=== PATIENT | female | born 1970 | race Caucasian/White ===

== ENCOUNTER 2019-07-08 08:50 | Emergency (ER) | payer BC ==
[~2019-07-08] VITALS: Ht 170.2 cm; Wt 80.0 kg
[2019-07-08] MEDS ORDERED: ipratropium/albuterol 3ml nebule NEB ONE (09:00)
[2019-07-08] MEDS ORDERED: predniSONE 20 mg tablet PO ONE (09:00)
[2019-07-08] MEDS ORDERED: azithromycin 250mg tablet PO ONE (09:05)
[2019-07-08] MEDS ORDERED: normal saline 1000ML IV soln IVB ONE (09:40)
[2019-07-08] MEDS ORDERED: LORazepam 2 mg/ml vial IV ONE (09:40)
--- NOTE | 2019-07-08 10:25 | NUR ---
Pt sitting on bed playing on phone. No acute distress observed.
[2019-07-08 10:41] LABS: CLARITY,URINE CLEAR (Clear); COLOR,URINE YELLOW (Yellow); GLUCOSE, URINE NEGATIVE (Neg); KETONES,URINE NEGATIVE (Neg); LEUKOCYTE ESTERASE ,URINE NEGATIVE (Neg); NITRITES, URINE NEGATIVE (Neg); OCCULT BLOOD,URINE NEGATIVE (Neg); PROTEIN,URINE NEGATIVE (Neg); UROBILINOGEN,URINE 0.2 E.U/dL (0.2-1.0)
[2019-07-08 10:45] LABS: UA COLLECTION TYPE CLN CATCH MIDSTREAM
[2019-07-08 10:49] LABS: BASOPHILS # (AUTO) 0.1 X10'3 (0-0.2); BASOPHILS % (AUTO) 1.3 % (0-1); EOSINOPHILS # (AUTO) 0.1 X10'3 (0-0.9); EOSINOPHILS % (AUTO) 1.1 % (0-6); HEMATOCRIT 44.9 % (35.0-45.0); HEMOGLOBIN 15.5 g/dl (12.0-16.0); LYMPHOCYTES # (AUTO) 1.6 X10'3 (1.1-4.8); LYMPHOCYTES % (AUTO) 16.9 % (21-51); MEAN CORPUSCULAR HEMOGLOBIN 33.3 PG (27.0-31.0); MEAN CORPUSCULAR HGB CONC 34.5 g/dL (33.0-36.5); MEAN CORPUSCULAR VOLUME 96.3 FL (78-98); MEAN PLATELET VOLUME 8.6 FL (7.4-10.4); MONOCYTES # (AUTO) 0.5 X10'3 (0-0.9); MONOCYTES % (AUTO) 5.4 % (2-12); NEUTROPHILS # (AUTO) 7.2 X10'3 (1.8-7.7); NEUTROPHILS % (AUTO) 75.3 % (42-75); PLATELET COUNT 220 X10'3 (140-440); RED BLOOD COUNT 4.66 X10'6 (4.20-5.60); RED CELL DISTRIBUTION WIDTH 12.4 % (11.5-14.5); WHITE BLOOD COUNT 9.6 X10'3 (4.5-11.0)
[2019-07-08 10:55] LABS: D-DIMER 0.25 MG/L FEU (0-0.50)
[2019-07-08] MEDS ORDERED: ondansetron/PF 4mg/2ml inj IV ONE (10:55)
[2019-07-08 11:00] VITALS: BP 127/80
[2019-07-08 11:00] LABS: ALANINE AMINOTRANSFERASE 16 U/L (12-78); ALBUMIN 3.8 G/DL (3.4-5.0); ALBUMIN/GLOBULIN RATIO 1.2 (1.1-1.5); ALKALINE PHOSPHATASE 48 IU/L (46-116); ANION GAP 14 (8-16); ASPARTATE AMINO TRANSFERASE 14 U/L (10-37); BILIRUBIN,TOTAL 0.4 MG/DL (0.1-1.0); BLOOD UREA NITROGEN 11 MG/DL (7-18); BUN/CREATININE RATIO 12.6 (6.6-38.0); CALCIUM 8.7 MG/DL (8.5-10.1); CHLORIDE 108 MMOL/L (99-107); CREATININE 0.87 MG/DL (0.40-0.90); GLUCOSE 118 MG/DL (70-104); POTASSIUM 3.3 MMOL/L (3.5-5.1); SODIUM 143 MMOL/L (135-145); TOTAL CARBON DIOXIDE 21.1 MMOL/L (24-32); TOTAL PROTEIN 6.9 G/DL (6.4-8.2); eGFR 69 ML/MIN
[2019-07-08] MEDS ORDERED: proCHLORperazine 10 MG/2 ml inj IV ONE (11:00)
[2019-07-08] MEDS ORDERED: ALBU8.5H8 IH (11:04)
[2019-07-08] MEDS ORDERED: PRED20TA PO (11:04)
[2019-07-08] MEDS ORDERED: AZIT250T29 PO (11:04)
[2019-07-08 11:07] LABS: ETHANOL < 0.010 GM/DL (0.0-0.010)
--- NOTE | 2019-07-08 11:09 | NUR ---
Pt sitting at bedside vomiting. Order for antiemetic obtained and given.
[2019-07-08] MEDS ORDERED: diphenhydrAMINE 50 mg/ml inj IM ONE (11:20)
[2019-07-08 11:24] LABS: URINE AMPHETAMINE SCREEN NEGATIVE (Neg); URINE BARBITUATE SCREEN NEGATIVE (Neg); URINE BENZODIAZEPINES SCREEN NEGATIVE (Neg); URINE CANNABINOID SCREEN POSITIVE (Neg); URINE COCAINE SCREEN NEGATIVE (Neg); URINE METHADONE SCREEN NEGATIVE (Neg); URINE OPIATE SCREEN NEGATIVE (Neg); URINE PHENCYCLIDINE SCREEN NEGATIVE (Neg)
== END 2019-07-08 11:52 | disposition home or self-care (01) ==
LOC: ER 08:50
DX: J45.901 Unspecified asthma with (acute) exacerbation (principal); Z20.828 Contact with and (suspected) exposure to other viral communicable diseases; Z79.899 Other long term (current) drug therapy
CPT/HCPCS: 36415; 71045; 80053; 80305; 80320; 81003; 83880; 85025; 85379; 87635; 93005; 94640; 96372; 96374; 96375; 99285; J0780; J1200; J2060; J2405; J7030; J7512; 94760

== ENCOUNTER 2019-07-16 13:39 | Emergency (ER) | payer BC ==
[~2019-07-16] VITALS: Ht 157.5 cm; Wt 61.8 kg
[~2019-07-16 13:39] MED LIST: ALBU8.5H8 IH
[2019-07-16] MEDS ORDERED: magnesium 2GM in 50ml NS 50 ML IV ONE (15:15)
[2019-07-16] MEDS ORDERED: methylPREDNISolone sod succ 125mg/2ml vial IV ONE (15:15)
[2019-07-16] MEDS ORDERED: acetaminophen/codeine 120mg/12mg per 5ml cup PO ONE (15:25)
[2019-07-16] MEDS ORDERED: ACET5SOL2 PO (16:53)
[2019-07-16 17:12] VITALS: BP 138/77
== END 2019-07-16 17:13 | disposition home or self-care (01) ==
LOC: ER 13:39
DX: R07.89 Other chest pain (principal); R51 Headache; R06.02 Shortness of breath; J45.909 Unspecified asthma, uncomplicated; F17.200 Nicotine dependence, unspecified, uncomplicated; Z79.899 Other long term (current) drug therapy
CPT/HCPCS: 71045; 93005; 96365; 96366; 96375; 99284; J2930; J3475

== ENCOUNTER 2023-04-02 12:11 | Emergency (ER) | payer BC, MEDICAID, SELFPAY ==
[~2023-04-02] VITALS: Ht 157.5 cm; Wt 76.8 kg
[~2023-04-02 12:11] MED LIST changes: +ACET5SOL2 PO; +ALBU8.5H17 IH; -ALBU8.5H8 IH
[2023-04-02 12:47] VITALS: BP 122/78; PULSE 82; RESP 16; TEMP 98.1; O2SAT 99
[2023-04-02] MEDS ORDERED: LIDOCAINE 1%/EPI 1:100,000 inj. 10 ML multi-dose vial IJ ONE (13:45)
[2023-04-02] MEDS ORDERED: TETanus/Pertussis (Acell)/Diphther VAC/PF (Tdap-Adult) 0.5ml syringe IMVAC ONE (13:45)
== END 2023-04-02 17:53 | disposition home or self-care (01) ==
LOC: ER 12:12
DX: S61.512A Laceration without foreign body of left wrist, initial encounter (principal); S61.511A Laceration without foreign body of right wrist, initial encounter; J45.909 Unspecified asthma, uncomplicated; Z79.1 Long term (current) use of non-steroidal anti-inflammatories (NSAID); Z79.899 Other long term (current) drug therapy; W25.XXXA Contact with sharp glass, initial encounter; Y93.89 Activity, other specified; Y92.89 Other specified places as the place of occurrence of the external cause; Y99.8 Other external cause status
CPT/HCPCS: 12001; 90471; 90715; 99284; J7030; A6258; A6449

== ENCOUNTER 2023-07-27 19:22 | Emergency (ER) | payer MEDICAID ==
[~2023-07-27] VITALS: Ht 157.5 cm; Wt 77.3 kg
[~2023-07-27 19:22] MED LIST changes: +iohexol 300mg/ml 100ml inj. ONE
[2023-07-27 19:25] VITALS: TEMP 98.9
[2023-07-27] MEDS: ondansetron/PF 4mg/2ml inj IV ONE (19:53)
[2023-07-27] MEDS: normal saline 1000ML IV soln IVB ONE (19:54)
[2023-07-27] MEDS: morphine 4 MG/ML inj SYRINge IV ONE (19:54)
[2023-07-27 20:35] LABS: BASOPHILS # (AUTO) 0.1 X10'3 (0-0.2); BASOPHILS % (AUTO) 0.9 % (0-1); EOSINOPHILS % (AUTO) 0.2 % (0-6); HEMOGLOBIN 15.1 g/dl (12.0-16.0); LYMPHOCYTES # (AUTO) 1.7 X10'3 (1.1-4.8); MEAN CORPUSCULAR HGB CONC 34.3 g/dL (33.0-36.5); MEAN CORPUSCULAR VOLUME 93.2 FL (78-98); MEAN PLATELET VOLUME 8.1 FL (7.4-10.4); MONOCYTES # (AUTO) 0.5 X10'3 (0-0.9); MONOCYTES % (AUTO) 3.5 % (2-12); NEUTROPHILS # (AUTO) 12.9 X10'3 (1.8-7.7); NEUTROPHILS % (AUTO) 84.4 % (42-75); PLATELET COUNT 292 X10'3 (140-440); RED BLOOD COUNT 4.72 X10'6 (4.20-5.60); RED CELL DISTRIBUTION WIDTH 13.1 % (11.5-14.5); WHITE BLOOD COUNT 15.3 X10'3 (4.5-11.0)
[2023-07-27 20:44] LABS: ALBUMIN 3.5 G/DL (3.4-5.0); ANION GAP 12 (8-16); BLOOD UREA NITROGEN 11 MG/DL (7-18); BUN/CREATININE RATIO 15.5 (10.0-20.0); CALCIUM 8.2 MG/DL (8.5-10.1); CHLORIDE 104 MMOL/L (99-107); CREATININE 0.71 MG/DL (0.40-0.90); GLUCOSE 144 MG/DL (70-104); POTASSIUM 3.9 MMOL/L (3.5-5.1); SODIUM 138 MMOL/L (135-145); TOTAL CARBON DIOXIDE 22.5 MMOL/L (24-32); eCRCL 73 ML/MIN; eGFR 86 ML/MIN
[2023-07-27] MEDS: haloperidol lactate 5mg/ml inj IM ONE (21:21)
[2023-07-28 05:14] VITALS: BP 124/68; PULSE 72; RESP 18; O2SAT 97
== END 2023-07-28 05:16 | disposition home or self-care (01) ==
LOC: ER 19:23
DX: R11.2 Nausea with vomiting, unspecified (principal); G89.29 Other chronic pain; F11.20 Opioid dependence, uncomplicated; J45.909 Unspecified asthma, uncomplicated; Z79.1 Long term (current) use of non-steroidal anti-inflammatories (NSAID); Z79.899 Other long term (current) drug therapy
CPT/HCPCS: 36415; 74177; 80048; 84484; 85025; 93005; 96361; 96374; 96375; 99285; J2270; J2405; J7030; Q9967